=== PATIENT | female | born 1985 ===

== ENCOUNTER 2021-01-22 06:35 | Inpatient (IN) | payer OTHER ==
[2021-01-22] MEDS ORDERED: BACTRIM DS TAB1 EACH (15:19)
[2021-01-22] MEDS ORDERED: INFED50 MG/ML (15:19)
[2021-01-23] MEDS ORDERED: IBU400 MG PO (08:27)
[2021-01-23] MEDS ORDERED: ACETAMINOPHEN500 M2 PO (08:27)
[2021-01-23] MEDS ORDERED: SIMETHICONE125 M1 PO (08:28)
[2021-01-23] MEDS ORDERED: PERCOCET 5-3251 EACH PO (08:28)
== END 2021-01-23 12:12 | disposition home or self-care (01) | DRG 743 ==
LOC: CIR.AMB 06:35 → O/R 10:40 → OB/GYN 10:40 → CIR.AMB 11:00 → OB/GYN 01-23 12:12
PROVIDERS: ADMIT Obstetrics & Gynecology Gynecology; ATTEND Obstetrics & Gynecology Gynecology
PROC: 0UB74ZZ Excision of Bilateral Fallopian Tubes, Percutaneous Endoscopic Approach (ICD-10-PCS; 2021-01-22)
PROC: 0UT94ZZ Resection of Uterus, Percutaneous Endoscopic Approach (ICD-10-PCS; principal; 2021-01-22 11:00)
DX: D25.1 Intramural leiomyoma of uterus (principal); D25.2 Subserosal leiomyoma of uterus; N83.8 Other noninflammatory disorders of ovary, fallopian tube and broad ligament; N92.0 Excessive and frequent menstruation with regular cycle